=== PATIENT | female | born 1980 | race African-American/Black ===

== ENCOUNTER 2018-10-29 09:20 | Emergency (ER) | payer MEDICAID ==
[~2018-10-29] VITALS: Ht 172.7 cm; Wt 102.0 kg
[2018-10-29] MEDS ORDERED: DEXAMETHASONE 10 MG/ML VIAL PO ONE (10:30)
[2018-10-29] MEDS ORDERED: KETOROLAC 60MG/2ML VIAL IM ONE (10:30)
[2018-10-29 11:40] VITALS: BP 157/81
== END 2018-10-29 11:50 | disposition home or self-care (01) ==
LOC: ER 09:20
DX: J02.9 Acute pharyngitis, unspecified (principal)
CPT/HCPCS: 81025; 87070; 87077; 87430; 96372; 99283; J1100; J1885; Z7610